=== PATIENT | male | born 1980 | race Caucasian/White ===

== ENCOUNTER 2016-09-26 20:49 | Inpatient (IN) | payer OTHER, MEDICARE ==
[~2016-09-26] VITALS: Ht 165.1 cm; Wt 61.8 kg
[~2016-09-26 20:49] MED LIST: CEPH500C PO; HYDR-1231 PO; OMEP20CA6 PO
[2016-09-26] MEDS ORDERED: fentaNYL INJECTION 100 MCG/2 ML AMP ONE (20:51)
[2016-09-26] MEDS ORDERED: CATHETER FLUSH 10 ML SYR IV PRN (21:00)
[2016-09-26] MEDS ORDERED: IOHEXOL 350 MG/ML 100 ML (OMNIPAQUE 350) VIAL IV ONE (21:00)
[2016-09-26] MEDS ORDERED: NS 100 ML (IVPB) BAG IV ONE (21:00)
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
[2016-09-26 21:10] LABS: MEAN PLATELET VOLUME 9.3 FL (7.4-10.4); RED BLOOD COUNT 5.32 10^6/uL (4.35-5.85); RED CELL DISTRIBUTION WIDTH 12.8 % (10.0-14.5)
[2016-09-26] MEDS ORDERED: fentaNYL INJECTION 100 MCG/2 ML AMP IVP ONE ×3 (21:15→23:15)
--- OUTSIDE RECORDS SUMMARY | 2016-09-26 21:18 | XMS REPORT | Continuity of Care Document ---
Author Author [facility] Organization [facility] Address Unknown Phone Unavailable Allergies Active Description Code Type Severity Reaction Onset Reported/Identified Relationship to Patient Clinical Status Yes No Known Drug Allergies [id number] Drug Allergy Unknown N/ A 11/14/2013 Medications Problems Date Dx Coded Attending Type Code Diagnosis Diagnosed By 11/14/2013 JUAN JOSE COURTNEY Ot 942.24 11/14/2013 JUAN JOSE COURTNEY Ot 944.20 11/14/2013 JUAN JOSE COURTNEY Ot 948.00 11/14/2013 JUAN JOSE COURTNEY Ot E000.8 11/14/2013 JUAN JOSE COURTNEY Ot E849.0 11/14/2013 JUAN JOSE COURTNEY Ot E924.1 11/19/2014 TERESA PACHECO, NIECY Keys Ot 288.60 11/19/2014 TERESA PACHECO, NIECY Keys Ot 530.10 11/19/2014 TERESA PACHECO, NIECY Keys Ot 935.1 11/19/2014 TERESA PACHECO, NIECY Keys Ot E000.8 11/19/2014 TERESA PACHECO, NIECY Keys Ot E849.0 11/19/2014 TERESA PACHECO, NIECY Keys Ot E915 12/12/2014 NIECY MOORE MD Ot 530.3 12/12/2014 NIECY MOORE MD Ot K22.2 Procedures Results Encounters ACCT No. Visit Date/Time Discharge Status Pt. Type Provider Facility Loc./Unit Complaint [id number] 12/12/2014 06:49:00 2014 10:05:00 DIS Outpatient NIECY MOORE MD [facility] [id number] 12/08/2014 05:51:00 2014 23:59:59 CLS Outpatient NIECY MOORE MD [facility] PREOP [id number] 11/18/2014 21:27:00 2014 12:40:00 DIS Outpatient TERESA PACHECO, NIECY Keys [facility] [id number] 11/14/2013 18:46:00 2013 21:45:00 DIS Emergency PIPPA LEAL, JUAN JOSE Wolff [facility] ER
--- OUTSIDE RECORDS SUMMARY | 2016-09-26 21:18 | XMS REPORT | Continuity of Care Document ---
Author Author [facility] Organization [facility] Address Unknown Phone Unavailable Care Team Providers Care Aboriginal Ceremonial Celebrant Name Role Phone Self, Referral PCP Unavailable Source Comments Some departments are not documenting in the electronic medical record. If you do not see the information that you expected, contact Release of Information in the Health Information Management department at [phone] for further assistance in locating additional records.[facility] Active Allergies and Adverse Reactions No Known Allergies Current Medications Prescription Sig. Disp. Refills Start End Date Status Date NO HOME MEDICATIONS 04/25/19 Active 08 Active Problems Not on file Social History Tobacco Use Types Packs/Day Years Used Date Current Every Day Smoker 1 Last Filed Vital Signs Vital Sign Reading Time Taken Blood Pressure 153/84 11/22/2007 11:00 PM CDT Pulse 106 11/22/2007 11:00 PM CDT Temperature 37.8 C (100 F) 11/22/2007 11:00 PM CDT Respiratory Rate - - Height - - Weight - - Body Mass Index - - Oxygen Saturation 98% 11/22/2007 11:00 PM CDT Plan of Care Health Maintenance Due Date Last Done Comments Physical (Comprehensive) 1987 Exam Pertussis Vaccine 1991 Tetanus Vaccine 1997 Influenza Vaccine 11/29/2016 Results from Last 3 Months Not on file
[2016-09-26 21:33] LABS: ALANINE AMINOTRANSFERASE 38 U/L (0-55); ALBUMIN 4.6 GM/DL (3.2-4.5); ALCOHOL < 10 MG/DL (<10); ASPARTATE AMINO TRANSFERASE 43 U/L (5-34); BILIRUBIN,DIRECT 0.4 MG/DL (0.0-0.3); BILIRUBIN,INDIRECT 0.9 MG/DL; BILIRUBIN,TOTAL 1.3 MG/DL (0.1-1.0); BLOOD UREA NITROGEN 16 MG/DL (7-18); BUN/CREATININE RATIO 15; CALCIUM 9.8 MG/DL (8.5-10.1); CARBON DIOXIDE 21 MMOL/L (21-32); CREATININE SERUM 1.05 MG/DL (0.60-1.30); GFR ESTIMATED > 60; GLUCOSE 148 MG/DL (70-105)
[2016-09-26 21:41] LABS: ANION GAP 13 MMOL/L (5-14); CHLORIDE 105 MMOL/L (98-107); POTASSIUM 3.3 MMOL/L (3.6-5.0); SODIUM 139 MMOL/L (135-145)
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
[2016-09-26] MEDS ORDERED: NS IV 1000 ML 1,000 ML ONE (23:57)
[2016-09-26] MEDS ORDERED: fentaNYL PCA 300 MCG/30 ML VIAL ONE (23:57)
[2016-09-27] VITALS (16 sets, daily range): BP systolic 103–145; BP diastolic 60–90
[2016-09-27] MEDS ORDERED: NALOXONE 0.4 MG/ML 1 ML (NARCAN) VIAL IV PRN (00:30)
[2016-09-27] MEDS ORDERED: METOCLOPRAMIDE INJ 10 MG/2 ML (REGLAN) IV PRN (00:30)
[2016-09-27] MEDS ORDERED: NS IV 500 ML PCA CARRIER FLUID IV SCH (00:30)
[2016-09-27] MEDS ORDERED: ONDANSETRON 4 MG/2 ML (SDV) Z0FRAN IV PRN ×2 (00:30→11:30)
[2016-09-27] MEDS ORDERED: diphenhydrAMINE 50 MG/ML INJ (BENADRYL) IV PRN (00:30)
[2016-09-27] MEDS ORDERED: fentaNYL PCA 300 MCG/30 ML VIAL IV PRN (00:30)
[2016-09-27] MEDS: NS IV 1000 ML 1,000 ML IV SCH ×2 (00:33→08:16)
--- OUTSIDE RECORDS SUMMARY | 2016-09-27 00:51 | XMS REPORT | Continuity of Care Document ---
Author Author [facility] Organization [facility] Address Unknown Phone Unavailable Care Team Providers Care Director Graphics Name Role Phone Self, Referral PCP Unavailable Source Comments Some departments are not documenting in the electronic medical record. If you do not see the information that you expected, contact Release of Information in the Health Information Management department at [phone] for further assistance in locating additional records.[facility] Active Allergies and Adverse Reactions No [...]
--- OUTSIDE RECORDS SUMMARY | 2016-09-27 00:51 | XMS REPORT | Continuity of Care Document ---
Author Author [facility] Organization [facility] Address Unknown Phone Unavailable Allergies Active Description Code Type Severity Reaction Onset Reported/Identified Relationship to Patient Clinical Status Yes No Known Drug Allergies [id number] Drug Allergy Unknown N/ A 11/14/2013 Medications [...] Keys Ot 288.60 11/19/2014 TERESA PACHECO, NIECY eKys Ot 530.10 11/19/2014 TERESA PACHECO, NIECY Keys Ot 935.1 11/19/2014 TERESA PACHECO, NIECY Keys Ot E000.8 11/19/2014 TERESA PACHECO, NIECY Keys Ot E849.0 11/19/2014 TERESA PACHECO, NIECY Keys Ot E915 12/12/2014 NIECY MOORE MD Ot 530.3 12/12/2014 NIECY MOORE MD Ot K22.2 Procedures Results Encounters ACCT No. Visit Date/Time Discharge Status Pt. Type Provider Facility Loc./Unit Complaint [id number] 12/12/2014 06:49:00 2014 10:05:00 DIS Outpatient NIECY MOORE MD [facility] [id number] 12/08/2014 05:51:00 2014 23:59:59 CLS Outpatient NIECY MOORE MD [facility] PREOP [id number] 11/18/2014 21:27:00 2014 12:40:00 DIS Outpatient TERESA PACHECO, NIECY Keys [facility] [id number] 11/14/2013 18:46:00 2013 21:45:00 DIS Emergency PIPPA LEAL, JUAN JOSE Wolff [facility] ER
[2016-09-27] MEDS ORDERED: SENNA W/DOCUSATE (SENOKOT S) TABLET PO SCH (09:00)
[2016-09-27] MEDS ORDERED: DOCUSATE SODIUM 100 MG (COLACE) CAP PO SCH (09:00)
[2016-09-27 09:22] LABS: BILIRUBIN,URINE NEGATIVE (NEGATIVE); KETONES,URINE 2+ (NEGATIVE); LEUKOCYTE ESTERASE ,URINE 3+ (NEGATIVE); NITRITE,URINE NEGATIVE (NEGATIVE); PH,URINE 6 (5-9); PROTEIN,URINE 2+ (NEGATIVE); UROBILINOGEN,URINE 1 MG/DL (NORMAL)
[2016-09-27 09:36] LABS: WBC,URINE 50-100 /HPF
[2016-09-27] MEDS ORDERED: DEXAMETHASONE PF 10 MG/ML (DECADRON) VIAL ONE (09:56)
[2016-09-27] MEDS ORDERED: SEVOFLURANE (ULTANE) 15 ML INHAL SOLN ONE ×4 (09:56→11:17)
[2016-09-27] MEDS ORDERED: ONDANSETRON 4 MG/2 ML (SDV) Z0FRAN ONE (09:56)
[2016-09-27] MEDS ORDERED: MIDAZOLAM 2 MG/2 ML (VERSED) VIAL ONE (09:56)
[2016-09-27] MEDS ORDERED: fentaNYL INJECTION 100 MCG/2 ML AMP ONE (09:56)
[2016-09-27] MEDS ORDERED: LIDOCAINE PF 2% 5 ML (XYLOCAINE) VIAL ONE (09:56)
[2016-09-27] MEDS ORDERED: proPOfol 200 MG/20 ML (DIPRIVAN) VIAL IV ONE (09:56)
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
[2016-09-27] MEDS: LACTATED RINGERS 1,000 ML IV SCH ×4 (10:05→17:28)
[2016-09-27] MEDS ORDERED: ceFAZolin 1,000 MG (ANCEF) VIAL ONE (10:24)
[2016-09-27] MEDS ORDERED: ceFAZolin 1,000 MG (ANCEF) VIAL IV ONE (11:15)
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
--- NOTE | 2016-09-27 11:28 | Progress Note-Post Operative ---
Post-Operative Progess Note Surgeon (s)/Scuba Diver (s) Surgeon GERARDO RAY MD Scuba Diver: SHELDON SANTOS PA-C Pre-Operative Diagnosis LEFT INTERTROCHANTERIC FEMUR FRACTURE Post-Operative Diagnosis SAME Procedure & Operative Findings Date of Procedure 09/27/16 Procedure Performed/Findings ORIF OF LEFT HIP WITH DYNAMIC HIP COMPRESSION SCREW Anesthesia Type GENERAL Estimated Blood Loss Estimated blood loss (mL): 250 ML Specimens/Packing Specimens Removed NONE Packing: NONE GERARDO RAY MD Sep 27, 2016 11:28
[2016-09-27] MEDS ORDERED: HYDROcodone/APAP 5 MG/325 MG (LORTAB) TAB PO PRN (11:30)
[2016-09-27] MEDS ORDERED: MILK OF MAGNESIA 400 MG/5 ML 30 ML UDC PO PRN (11:30)
[2016-09-27] MEDS ORDERED: morphine INJ 10 MG/ML 1ML (SYR OR VIAL) IVP PRN (11:30)
[2016-09-27] MEDS ORDERED: MEPERIDINE (DEMEROL) INJ 50 MG/ML IVP PRN (11:45)
[2016-09-27] MEDS ORDERED: HYDROmorphone (DILAUDID) 2 MG/ML VIAL IVP PRN (11:45)
[2016-09-27] MEDS ORDERED: ONDANSETRON 4 MG/2 ML (SDV) Z0FRAN IVP PRN (11:45)
--- NOTE | 2016-09-27 11:51 | Diagnostic Imaging Report ---
EXAMINATION: Intraoperative radiographs of the left hip. INDICATION: Intertrochanteric fracture internal fixation by Dr. Resendez. Fluoroscopy time provided to the or is 21 seconds. IMPRESSION: There is plate and screws fixation of the proximal left femur in good alignment. Dictated by: Dictated on workstation # [id number]
--- NOTE | 2016-09-27 12:46 | Occ Therapy Progress Note ---
Therapy Progress Note Order received for OT eval and treat. Chart review completed. Pt having surgery today to repair left hip fracture. Will complete OT evaluation 09/28/16. EMY GARNER OT Sep 27, 2016 12:46
--- NOTE | 2016-09-27 14:31 | Physical Therapy Progress Note ---
Therapy Progress Note Evaluation order received, chart reviewed. Patient is having surgery for a hip fracture today. Will attempt PT eval tomorrow on 09/28/16. ROWAN MOONEY PT Sep 27, 2016 14:31
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
[2016-09-27] MEDS: oxyCODONE/APAP 5/325MG (PERCOCET 5) TABLET PO PRN ×3 (15:15→23:52)
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
[2016-09-27] MEDS: DOCUSATE SODIUM 100 MG (COLACE) CAP PO SCH (20:47)
[2016-09-27] MEDS: SENNOSIDES 8.6 MG (SENOKOT) TAB PO SCH (20:47)
[2016-09-28] MEDS: LACTATED RINGERS 1,000 ML IV SCH ×3 (01:07→19:33)
[2016-09-28 03:45] VITALS: BP 139/67
[2016-09-28 05:36] LABS: MEAN PLATELET VOLUME 11.4 FL (7.4-10.4); RED BLOOD COUNT 4.06 10^6/uL (4.35-5.85); RED CELL DISTRIBUTION WIDTH 12.4 % (10.0-14.5); WHITE BLOOD COUNT 15.6 10^3/uL (4.3-11.0)
[2016-09-28 08:00] VITALS: BP 103/66
[2016-09-28] MEDS: ENOXAPARIN 40 MG/0.4 ML (LOVENOX) SYR SC SCH (09:04)
[2016-09-28] MEDS: DOCUSATE SODIUM 100 MG (COLACE) CAP PO SCH ×2 (09:04→20:09)
[2016-09-28] MEDS: SENNOSIDES 8.6 MG (SENOKOT) TAB PO SCH ×2 (09:04→20:09)
[2016-09-28] MEDS: HYDROcodone/APAP 7.5 MG/325 MG (LORTAB, LORCET PLUS) TABLET PO PRN ×2 (09:05→15:04)
--- NOTE | 2016-09-28 09:50 | Progress Note (SOAP) ---
Subjective Subjective/Events-last exam Pt up and eating lunch today. No complaints. Review of Systems Date Seen by Provider: Sep 28, 2016 Time Seen by Provider: 10:20 General: No Chills, No Night Sweats Objective Exam Last Set of Vital Signs Vital Signs Date Time Temp Pulse Resp B/P (MAP) Pulse Ox O2 Delivery O2 Flow Rate FiO2 09/28/16 08:00 98.3 91 18 103/66 98 Room Air Capillary Refill : Less Than 3 SecondsLess Than 3 Seconds I&O Intake and Output 09/28/16 00:00 Intake Total 1750 ml Output Total 1250 ml Balance 500 ml Intake Oral 750 ml IV Total 1000 ml Output Urine Total 1000 ml Estimated Blood Loss 250 ml General: Alert, Oriented X3, Cooperative Lungs: Clear to Auscultation, Normal Air Movement Heart: Regular Rate, Normal S1, Normal S2, No Murmurs, Gallops, Rubs Abdomen: Normal Bowel Sounds, Soft, No Tenderness, No Hepatosplenomegaly, No Masses Extremities: No Clubbing, No Cyanosis, No Edema Psych/Mental Status: Mental Status NL Results/Procedures Lab Laboratory Tests 09/28/16 05:30: White Blood Count 15.6H, Red Blood Count 4.06L, Hemoglobin 11.5#L, Hematocrit 35L, Mean Corpuscular Volume 86, Mean Corpuscular Hemoglobin 28, Mean Corpuscular Hemoglobin Concent 33, Red Cell Distribution Width 12.4, Platelet Count 51L, Mean Platelet Volume 11.4H Microbiology 09/26/16 Urine Culture - Preliminary, Resulted NO GROWTH Assessment/Plan Assessment/Plan Plan LEFT INTERTROCHANTERIC HIP FRACTURE -managed by ortho -plan is to go home - hopefully with home health METHAMPHETAMINE ABUSE -will arrange for someone from [facility] to call patient to offer services Diagnosis/Problems: Clinical Quality Measures DVT/VTE Risk/Contraindication: Risk Factor Score Per Nursin RFS Level Per Nursing on Admit: 4+=Very High TAMERA SHELTON MD Sep 28, 2016 09:50
--- NOTE | 2016-09-28 10:32 | Progress Note-Standard ---
Standard Progress Note Progress Notes/Assess & Plan Date Seen by Provider: Sep 28, 2016 Time Seen by Provider: 10:29 Progress/Assessment & Plan S: Patient A&Ox4. Complains of no pain. O:Labs and V/S are stable. Incision dry clean and intact. No drainage. Dressing was changed. LLE N/V/M/I. Calf muscle soft N/D. Has been up with PT waling the the halls. A: S/P left hip fracture with ORIF lag screw. Patient Stable and doing well. P: He will stay another day. I want PT to continue working with him, and he should be able to go home tomorrow. SHELDON SANTOS Sep 28, 2016 10:32
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
[2016-09-28 12:00] VITALS: BP 112/71
--- NOTE | 2016-09-28 13:21 | Anesthesia-General Post-Op ---
General Patient Condition Mental Status/LOC: Same as Preop Cardiovascular: Satisfactory Nausea/Vomiting: Absent Respiratory: Satisfactory Pain: Controlled Complications: Absent Post Op Complications Complications None Follow Up Care/Instructions Patient Instructions None needed. Anesthesia/Patient Condition Patient Condition Patient is doing well, no complaints, stable vital signs, no apparent adverse anesthesia problems. No complications reported per nursing. DILIP BAEZ CRNA Sep 28, 2016 13:21
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
[2016-09-28 15:40] VITALS: BP 132/65
[2016-09-28 19:37] VITALS: BP 119/67
[2016-09-29 00:20] VITALS: BP 118/65
[2016-09-29] MEDS: LACTATED RINGERS 1,000 ML IV SCH (04:17)
[2016-09-29 04:19] VITALS: BP 127/69
[2016-09-29 05:18] LABS: MEAN PLATELET VOLUME 9.1 FL (7.4-10.4); RED BLOOD COUNT 4.14 10^6/uL (4.35-5.85); RED CELL DISTRIBUTION WIDTH 12.6 % (10.0-14.5); WHITE BLOOD COUNT 10.1 10^3/uL (4.3-11.0)
[2016-09-29 07:23] VITALS: BP 111/71
[2016-09-29] MEDS: SENNOSIDES 8.6 MG (SENOKOT) TAB PO SCH (08:46)
[2016-09-29] MEDS: DOCUSATE SODIUM 100 MG (COLACE) CAP PO SCH (08:46)
[2016-09-29] MEDS: HYDROcodone/APAP 7.5 MG/325 MG (LORTAB, LORCET PLUS) TABLET PO PRN (08:47)
[2016-09-29] MEDS: ENOXAPARIN 40 MG/0.4 ML (LOVENOX) SYR SC SCH (08:47)
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
--- NOTE | 2016-09-29 10:23 | Progress Note-Standard ---
Standard Progress Note Progress Notes/Assess & Plan Date Seen by Provider: Sep 29, 2016 Time Seen by Provider: 10:22 Progress/Assessment & Plan POD 2. Doing well on hydrocodone Incision healing well. NV intact Diagnosis: left intertrochanteric femur fracture Plan: DC to home Final Diagnosis Left intertrochanteric femur fracture GERARDO RAY MD Sep 29, 2016 10:23
--- NOTE | 2016-09-29 10:27 | Discharge Inst-Surgical ---
Discharge Inst-Surgical Depart Medication/Instructions New, Converted or Re-Newed RX: RX on Chart Final Diagnosis: Left intertrochanteric femur fracture Consults/Follow Up Goal/Follow Up Appt.: Call office for follow up in 10-14 days Patient Instructions: Toe touch weight bearing left leg Use walker at home Keep incision dry Orders & Referrals DME for standard walker Activity Activity as Tolerated: No Toe touch weight left leg Walker Keep incision dry Walking Assistive Device: Walker Activity Instructions: Avoid Pulling & Pushing, Avoid Stress to Incision Driving Instructions: No Driving for 2 Weeks No Driving When on Pain Meds: Yes Incentive Spirometry: Every 2 Hours While Awake Avoid ALL Tobacco Products: Smoking of Any Kind Diet Discharge Diet: No Restrictions Return to The Hospital For: Persistent fever wound drainage Symptoms to Report to Physicia: Extremity Discoloration, Numbness/Tingling, Swelling Increased, Bleeding Excessive, Pain Increased, Fever Over 101 Degrees F If Any Problems/Questions/Issu: Contact Your Physician Skin/Wound Care Infection Signs and Symptoms: Increased Redness, Foul Odor of Wound, Increased Drainage, Increased Swelling, Temperature Above 101 F Bathing Instructions: Shower Operative Area Clean and Dry: Keep Incision Clean/Dry Stitches/Efra/Dermabond Dis: Care of Efra Ice Pack: Ice On and Off Site GERARDO RAY MD Sep 29, 2016 10:27
[2016-09-29] MEDS ORDERED: HYDR-3816 PO (10:44)
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
[2016-09-29 14:42] VITALS: BP 111/71
== END 2016-09-29 14:20 | disposition home or self-care (01) | DRG 482 ==
LOC: EDUNIT# 20:49 → ER 20:52 → ICU 23:15 → 4TH 09-27 15:54
PROVIDERS: ADMIT Surgery; ATTEND Surgery
PROC: 0QS704Z Reposition Left Upper Femur with Internal Fixation Device, Open Approach (ICD-10-PCS; principal; 2016-09-27 10:14)
DX: S72.142A Displaced intertrochanteric fracture of left femur, initial encounter for closed fracture (principal); S51.812A Laceration without foreign body of left forearm, initial encounter; S20.312A Abrasion of left front wall of thorax, initial encounter; S40.212A Abrasion of left shoulder, initial encounter; S30.811A Abrasion of abdominal wall, initial encounter; S70.212A Abrasion, left hip, initial encounter; F15.10 Other stimulant abuse, uncomplicated; H91.93 Unspecified hearing loss, bilateral; V28.5XXA Motorcycle passenger injured in noncollision transport accident in traffic accident, initial encounter
CPT/HCPCS: 36415; 70450; 71010; 71260; 72125; 73060; 73552; 73590; 74177; 80048; 80076; 80306; 80320; 81000; 82962; 85027; 86850; 86900; 86901; 87081; 87088; 93041; 94664; 96374; 96376